=== PATIENT | female | born 1975 | race African-American/Black ===

== ENCOUNTER 2016-12-24 15:33 | Inpatient (IN) | payer OTHER ==
[2016-12-24 17:00] VITALS: BP 146/89
[2016-12-24] MEDS ORDERED: diphenhydrAMINE 50 MG/ML VIAL IVP PRN (17:00)
[2016-12-24 17:38] LABS: RED BLOOD COUNT 3.67 x10^6/uL (3.50-5.40); RED CELL DISTRIBUTION WIDTH 20.7 % (11.5-14.5); WHITE BLOOD COUNT 4.2 x10^3/uL (4.0-11.0)
[2016-12-24 17:42] LABS: HEMATOCRIT 19.6 % (36.0-47.0); HEMOGLOBIN 5.6 g/dL (12.0-15.5)
[2016-12-24] MEDS: IBUPROFEN 800 MG TABLET. PO PRN (18:06)
[2016-12-24] MEDS ORDERED: IBUPROFEN 800 MG TABLET. PO PRN (18:30)
[2016-12-24] MEDS ORDERED: ONDANSETRON PF 4 MG/2 ML VIAL. IV PRN (18:30)
[2016-12-24 19:05] VITALS: BP 162/81
[2016-12-24 19:44] VITALS: BP 145/72
[2016-12-24 21:55] VITALS: BP 136/69
[2016-12-24 22:15] VITALS: BP 138/75
--- NOTE | 2016-12-24 23:44 | PDOC1 ---
History and Physical Date of Admission Date of Admission DATE: 12/24/16 TIME: 23:36 Identification/Chief Complaint Chief Complaint severe anemia Problems: History of Present Illness History of Present Illness 41 y/o with severe chronic blood loss anemia with Hgb 5.1 that was called to clinic from lab drawn on previous day. Pt. reports fatigue. No H/A, CP, SOB, abd pain or syncope events. Pt. with known chronic blood loss anemia and fibroid uterus. Past Medical History Heme/Onc: Iron deficiency Anemia Current Medications Current Medications Current Medications Ibuprofen (Motrin) 800 mg PRN Q8HRS PRN PO INFLAMMATION Last administered on t 18:06; Start 12/24/16 at 17:00 Diphenhydramine HCl (Benadryl) 25 mg PRN Q6HRS PRN IVP ITCHING; Start 12/24/16 at 17:00 Ondansetron HCl (Zofran) 8 mg PRN Q6HRS PRN IV NAUSEA/VOMITING; Start 12/24/16 at 18:30 Pantoprazole Sodium (Protonix) 40 mg DAILYAC PO ; Start 12/25/16 at 07:30 Ibuprofen (Motrin) 800 mg PRN TID PRN PO INFLAMMATION; Start 12/24/16 at 18:30 Allergies Allergies: Coded Allergies: No Known Drug Allergies (Unverified , 12/24/16) ROS General: YES: Fatigue, No: Chills, Night Sweats, Malaise, Appetite, Other PSYCHOLOGICAL ROS: No: Anxiety, Behavioral Disorder, Concentration difficultie , Decreased libido, Depression, Disorientation, Hallucinations, Hostility, Irritablity, Memory difficulties, Mood Swings, Obsessive thoughts, Physical abuse, Sexual abuse, Sleep disturbances, Suicidal ideation, Other Eyes: No Blurry vision, No Decreased vision, No Double vision, No Dry eyes, No Excessive tearing, No Eye Pain, No Itchy Eyes, No Loss of vision, No Photophobia , No Scotomata, No Uses contacts, No Uses glasses, No Other HEENT: No: Heacaches, Visual Changes, Hearing change, Nasal congestion, Nasal discharge, Oral lesions, Sinus pain, Sore Throat, Epistaxis, Sneezing, Snoring, Tinnitus, Vertigo, Vocal changes, Other ALLERGY AND IMMUNOLOGY: No: Hives, Insect Bite Sensitivity, Itchy/Watery Eyes, Nasal Congestion, Post Nasal Drip, Seasonal Allergies, Other Hematological and Lymphatic: No: Bleeding Problems, Blood Clots, Blood Transfusions, Brusing, Night Sweats, Pallor, Swollen Lymph Nodes, Other ENDOCRINE: No: Breast Changes, Galactorrhea, Hair Pattern Changes, Hot Flashes , Malaise/lethargy, Mood Swings, Palpitations, Polydipsia/polyuria, Skin Changes , Temperature Intolerance, Unexpected Weight Changes, Other Breast: No New/Changing Breast Lumps, No Nipple changes, No Nipple discharge, No Other Respiratory: No: Cough, Hemoptysis, Orthopnea, Pleuritic Pain, Shortness of breath, SOB with excertion, Sputum Changes, Stridor, Tachypnea, Wheezing, Other Cardiovascular: No Chest Pain, No Palpitations, No Orthopnea, No Paroxysmal Noc. Dyspnea, No Edema, No Lt Headedness, No Other Gastrointestinal: No Nausea, No Vomiting, No Abdominal Pain, No Diarrhea, No Constipation, No Melena, No Hematochezia, No Other Genitourinary: No Dysuria, No Frequency, No Incontinence, No Hematuria, No Retention, No Discharge, No Urgency, No Pain, No Flank Pain, No Other, No , No , No , No , No , No , No Musculoskeletal: No Gait Disturbance, No Joint Pain, No Joint Stiffness, No Joint Swelling, No Muscle Pain, No Muscular Weakness, No Pain In:, No Swelling In:, No Other Physical Exam General: Alert, Oriented X3, Cooperative HEENT: Atraumatic Lungs: Clear to auscultation Heart: S1S2 Breasts: Normal Abdomen: Normal bowel sounds, Soft, Other (24 wk size uterus) Extremities: No clubbing, No edema Neuro: Normal gait Psych/Mental Status: Mental status NL Vitals Vitals Vital Signs Date Time Temp Pulse Resp B/P (MAP) Pulse Ox O2 Delivery O2 Flow Rate FiO2 12/24/16 22:15 98.1 75 14 138/75 98.1 12/24/16 19:44 Room Air Labs Labs Laboratory Tests Test 12/24/16 17:30 White Blood Count 4.2 x10^3/uL (4.0-11.0) Red Blood Count 3.67 x10^6/uL (3.50-5.40) Hemoglobin 5.6 g/dL (12.0-15.5) Hematocrit 19.6 % (36.0-47.0) Mean Corpuscular Volume 54 fL (79-100) Mean Corpuscular Hemoglobin 15 pg (25-35) Mean Corpuscular Hemoglobin Concent 29 g/dL (31-37) Red Cell Distribution Width 20.7 % (11.5-14.5) Platelet Count 498 x10^3/uL (140-400) Laboratory Tests Test 12/24/16 17:30 White Blood Count 4.2 x10^3/uL (4.0-11.0) Red Blood Count 3.67 x10^6/uL (3.50-5.40) Hemoglobin 5.6 g/dL (12.0-15.5) Hematocrit 19.6 % (36.0-47.0) Mean Corpuscular Volume 54 fL (79-100) Mean Corpuscular Hemoglobin 15 pg (25-35) Mean Corpuscular Hemoglobin Concent 29 g/dL (31-37) Red Cell Distribution Width 20.7 % (11.5-14.5) Platelet Count 498 x10^3/uL (140-400) VTE Prophylaxis Ordered VTE Prophylaxis Devices: No VTE Pharmacological Prophylaxi: No Assessment/Plan Assessment/Plan A: Severe Chronic Blood loss anemia P: Admit for blood transfusion 3 Units PRBC's. Check H&H 4 hours after last bag transfused. Pelvic sono. ENOCH ALBERT Jr, MD Dec 24, 2016 23:44
[2016-12-25 00:35] VITALS: BP 163/87
--- NOTE | 2016-12-25 00:50 | ACF ---
Admission Forms Criteria ANEMIA, IRON DEFICIENCY OR UNSPECIFIED Clinical Indications for Inpatient Care (Place 'X' for any and all applicable criteria): Admission is indicated for ANY ONE of the following(1)(2)(3)(4)(5)(6)(7): [X] I. Inpatient admission required rather than observation care (Also use Anemia, Iron Deficiency or Unspecified: Observation Care guideline as appropriate) because of ANY ONE of the following: [] a) Hemodynamic instability that is severe or persistent [] b) Active bleeding that cannot be rapidly controlled [] c) CVS symptoms (i.e., dyspnea, chest pain, heart failure) that are severe or persistent [] d) Neurologic symptoms (i.e., cognitive impairment, recurrent syncope or near syncope) that are severe or persistent [] e) Cardiac arrhythmias of immediate concern [] f) Acute peripheral ischemia (e.g., pulseless, cool, mottled, or cyanotic extremity) [] g) High-risk low platelet count [] h) Acute renal failure [X] i) Ongoing transfusion for blood loss (greater than 2 units) [] j) IV fluid to replace significant ongoing (eg, >24 hours) losses (> 3 L/m2 per day) [] k) Pulmonary artery catheter monitoring [] l) Supplemental oxygen or respiratory treatments for over 24 hours that are performable only in acute inpatient setting [] m) Immediate inpatient surgery [] n) Other condition, treatment or monitoring requiring inpatient admission [] II Active massive hemorrhage [] III. Active hemolysis with rapidly progressive anemia [A](6) Extended stay beyond goal length of stay may be needed for (17)(18) []a) Diagnosed cause of anemia requiring longer hospitalization (eg, active GI bleeding, immune hemolysis requiring electrophoresis, complications of malignancy requiring acute care []b) Continued emergent anemia indicators (23) []c) Transfusion reactions []d) Associated leukopenia or thrombocytopenia needing inpatient care []e) Active comorbidities (eg, renal failure, heart failure) The original [facility] Care Guidelines content created by [facility] Care Guidelines has been revised. The portions of the content which have been revised are identified through the use of italic text or in bold. [facility] Guidelines has neither reviewed nor approved the modified material. All other unmodified content is copyright [facility] Care Guidelines. Please see references footnoted in the original [facility] edition 2016 Admission Criteria Met?: Yes TOÑITO MERCADO Dec 25, 2016 00:50
[2016-12-25 01:01] VITALS: BP 136/78
[2016-12-25 01:12] VITALS: BP 116/65
[2016-12-25 03:14] VITALS: BP 124/77
[2016-12-25 04:12] VITALS: BP 90/60
[2016-12-25] MEDS ORDERED: PANTOPRAZOLE 40 MG TABLET.DR. PO SCH (07:30)
[2016-12-25] MEDS: IBUPROFEN 800 MG TABLET. PO PRN (08:44)
--- NOTE | 2016-12-25 08:46 | RAD ---
Pelvic ultrasound, 12/24/2016: History: Pelvic pain, menorrhagia, fibroid uterus Transabdominal and transvaginal scans were obtained. The uterus is enlarged and lobulated in contour due to the presence of of multiple uterine masses. It measures approximately 28 x 12 x 10 cm. The largest mass is heterogeneous and solid in nature and lies centrally. It measures 11.9 cm. There are 2 additional discrete masses on the left measuring 8.6 cm and 6.3 cm. There is a partially calcified uterine mass just to the right of midline measuring 3.9 cm. The findings are compatible with multiple uterine fibroids. The central uterine echo complex is distorted by these masses and not clearly visualized. The right ovary was not identified. A small structure which is probably the left ovary is visualized and it is of normal size. A small amount of free fluid was noted in the right adnexa. IMPRESSION: Enlarged uterus containing multiple solid masses as described above, most compatible with uterine fibroids.
[2016-12-25 09:46] LABS: HEMATOCRIT 31.3 % (36.0-47.0); HEMOGLOBIN 9.8 g/dL (12.0-15.5)
[2016-12-25 11:00] VITALS: BP 145/61
--- NOTE | 2016-12-25 11:38 | PDOC ---
SURGICAL PROGRESS NOTE Subjective PT. feeling much better after blood transfusion completed. No CP, SOB, H/A or dizziness. Pelvic sono results provided. Vital Signs Vital Signs Date Time Temp Pulse Resp B/P (MAP) Pulse Ox O2 Delivery O2 Flow Rate FiO2 12/25/16 11:00 98.6 74 20 145/61 (89) 100 Room Air 98.6 I&O Intake and Output 12/25/16 07:00 Intake Total 3168 ml Balance 3168 ml Intake Oral 2120 ml Blood Product IV Normal Saline Flush 1048 ml # Voids 2 PATIENT HAS A MURPHY: No General: Alert, Oriented X3, Cooperative HEENT: Atraumatic Lungs: Clear to auscultation Heart: Regular rate Abdomen: Normal bowel sounds, Soft Psych/Mental Status: Mental status NL Labs Laboratory Tests Test 12/24/16 17:30 12/25/16 09:13 White Blood Count 4.2 x10^3/uL (4.0-11.0) Red Blood Count 3.67 x10^6/uL (3.50-5.40) Hemoglobin 5.6 g/dL (12.0-15.5) 9.8 g/dL (12.0-15.5) Hematocrit 19.6 % (36.0-47.0) 31.3 % (36.0-47.0) Mean Corpuscular Volume 54 fL (79-100) Mean Corpuscular Hemoglobin 15 pg (25-35) Mean Corpuscular Hemoglobin Concent 29 g/dL (31-37) Red Cell Distribution Width 20.7 % (11.5-14.5) Platelet Count 498 x10^3/uL (140-400) Laboratory Tests Test 12/24/16 17:30 12/25/16 09:13 White Blood Count 4.2 x10^3/uL (4.0-11.0) Red Blood Count 3.67 x10^6/uL (3.50-5.40) Hemoglobin 5.6 g/dL (12.0-15.5) 9.8 g/dL (12.0-15.5) Hematocrit 19.6 % (36.0-47.0) 31.3 % (36.0-47.0) Mean Corpuscular Volume 54 fL (79-100) Mean Corpuscular Hemoglobin 15 pg (25-35) Mean Corpuscular Hemoglobin Concent 29 g/dL (31-37) Red Cell Distribution Width 20.7 % (11.5-14.5) Platelet Count 498 x10^3/uL (140-400) Assessment/Plan A: Chronic blood loss anemia s/p 3 Units PRBC's. P: D/c home. F/u in 1 week. Problems: ENOCH ALBERT Jr, MD Dec 25, 2016 11:38
--- NOTE | 2016-12-25 11:41 | DISCH ---
DISCHARGE INSTRUCTIONS Condition on Discharge Condition on Discharge: Stable Activity After Discharge Activity Instructions for Disc: Activity as tolerated Lifting Instructions after Dis: No heavy lifting Driving Instructions after Dis: Do not drive today Diet after Discharge Diet after Discharge: Regular Contacting the DRKrystin after DC Call your doctor for: Concerns you may have Follow-Up Follow up with: Dr. Sarkar in 1 week. ENOCH SARKAR Jr, MD Dec 25, 2016 11:41
[2016-12-25] MEDS ORDERED: MEDR10TA PO (11:42)
== END 2016-12-25 16:50 | disposition home or self-care (01) | DRG 812 ==
LOC: 3 NORTH 16:28
PROVIDERS: ADMIT Obstetrics & Gynecology; ATTEND Obstetrics & Gynecology
PROC: 30233N1 Transfusion of Nonautologous Red Blood Cells into Peripheral Vein, Percutaneous Approach (ICD-10-PCS; principal; 2016-12-24)
DX: D50.0 Iron deficiency anemia secondary to blood loss (chronic) (principal); D25.9 Leiomyoma of uterus, unspecified
CPT/HCPCS: 36415; 76830; 76856; 85014; 85018; 85027; 86850; 86900; 86901; 86920; P9016

== ENCOUNTER → 2017-01-16 | Outpatient (CLI) | payer OTHER ==
[2016-12-25 11:00] VITALS: BP 145/61
[~2017-01-16] MED LIST: MEDR10TA PO
[2017-01-16 10:40] LABS: BASO # 0.1 x10^3/uL (0.0-0.2); BASO % 1 % (0-3); EOS % 1 % (0-3); HEMATOCRIT 26.1 % (36.0-47.0); HEMOGLOBIN 7.9 g/dL (12.0-15.5); LYMPH # 1.9 x10^3/uL (1.0-4.8); LYMPH % 25 % (24-48); MEAN CORPUSCULAR HEMOGLOBIN 19 pg (25-35); MEAN CORPUSCULAR HGB CONC 30 g/dL (31-37); MEAN CORPUSCULAR VOLUME 63 fL (79-100); MONO % 6 % (0-9); NEUT % 66 % (31-73); PLATELET COUNT 620 x10^3/uL (140-400); RED BLOOD COUNT 4.15 x10^6/uL (3.50-5.40); RED CELL DISTRIBUTION WIDTH 32.7 % (11.5-14.5); WHITE BLOOD COUNT 7.4 x10^3/uL (4.0-11.0)
[2017-01-16 12:50] LABS: ANISOCYTOSIS MARKED; HYPOCHROMIA MARKED; MICROCYTOSIS MARKED; OVALOCYTES FEW; PLT ESTIMATE INCREASED (ADEQUATE); POLYCHROMASIA SLIGHT; TEAR DROP CELLS OCC
[2017-01-16 12:51] LABS: SCHISTOCYTES FEW
== END | disposition home or self-care (01) ==
LOC: LAB 10:19
PROVIDERS: ATTEND Obstetrics & Gynecology
DX: Z01.818 Encounter for other preprocedural examination (principal)
CPT/HCPCS: 36415; 85025

== ENCOUNTER → 2017-02-05 | Outpatient (CLI) | payer OTHER ==
[2017-01-25 12:50] VITALS: BP 131/74
[~2017-02-05] MED LIST changes: +CONTRAST GIVEN MC PRN; +FERR-26 PO; +IOHEXOL 240 MG/ML 50ML VIAL. ONE; +IOHEXOL 240 MG/ML 50ML VIAL. PO ONE; +IOHEXOL 300 MG/ML 75 ML VIAL IV ONE; +IOHEXOL 300 MG/ML 75 ML VIAL ONE; +NAPR500T3 PO; +OXYC-323 PO
--- NOTE | 2017-02-05 10:53 | RAD ---
Indication uterine malignancy. Staging. The chest, abdomen and pelvis were scanned. Both IV and gastrointestinal contrast were administered. 75 cc of Omnipaque 300 was administered intravenously. No prior CT imaging is available. CT chest: Findings. The thoracic aorta appears unremarkable. There is no significant hilar or mediastinal adenopathy. No acute parenchymal infiltrate is seen. There is no dominant soft tissue mass in either lung. There is no evidence of metastatic disease. CT abdomen and pelvis: Findings. The liver and spleen appear unremarkable. The gallbladder appears grossly normal. No pancreatic abnormality is seen. There are no adrenal masses and the kidneys appear unremarkable. There is no significant central or retroperitoneal adenopathy. There is no evidence of metastatic disease to the abdomen. In the pelvis there is a low-density mass, likely reflecting an ovarian cyst, in the left adnexa measuring approximately 3.7 cm in greatest dimension. An acute finding or definite evidence of metastatic disease in the pelvis is not seen. Significant pelvic or inguinal adenopathy is not seen. IMPRESSION: No acute finding seen in the chest, abdomen or pelvis. No definite evidence of metastatic disease. Low-density 3.7 cm mass in the left adnexa likely reflecting an ovarian cyst. This could be further evaluated with ultrasound if clinically warranted PQRS Compliance Statement: One or more of the following individualized dose reduction techniques were utilized for this examination: 1. Automated exposure control 2. Adjustment of the mA and/or kV according to patient size 3. Use of iterative reconstruction technique
== END | disposition home or self-care (01) ==
LOC: CT 08:51
PROVIDERS: ATTEND Obstetrics & Gynecology Gynecologic Oncology
DX: C55 Malignant neoplasm of uterus, part unspecified (principal)
CPT/HCPCS: 71260; 74177; Q9966; Q9967

== ENCOUNTER → 2017-02-18 | Outpatient (CLI) | payer OTHER ==
[2017-01-25 12:50] VITALS: BP 131/74
[~2017-02-18] MED LIST changes: -CONTRAST GIVEN MC PRN; -IOHEXOL 240 MG/ML 50ML VIAL. ONE; -IOHEXOL 240 MG/ML 50ML VIAL. PO ONE; -IOHEXOL 300 MG/ML 75 ML VIAL IV ONE; -IOHEXOL 300 MG/ML 75 ML VIAL ONE
--- NOTE | 2017-02-18 12:19 | EKG ---
[facility] [address] [place] [address] Test Date: 2017-02-18 Test Time: 12:17:17 Pat Name: BYRON TALBOT Department: Room: Gender: F Supervisor [employer] System: NATASHA : 1975 Requested By: CLARE JONES Order Number: [id number] Reading MD: Erendira Avery Measurements Intervals [place] Rate: 74 P: 47 VA: 212 QRS: -2 QRSD: 72 T: 51 QT: 370 QTc: 416 Interpretive Statements SINUS RHYTHM LEFTWARD AXIS OTHERWISE NORMAL ECG Electronically Signed On 02-19-2017 9:41:10 CDT by Erendira Avery
[2017-02-18 13:07] LABS: BASO # 0.1 x10^3/uL (0.0-0.2); BASO % 1 % (0-3); EOS % 4 % (0-3); HEMATOCRIT 31.4 % (36.0-47.0); HEMOGLOBIN 9.8 g/dL (12.0-15.5); LYMPH # 1.7 x10^3/uL (1.0-4.8); LYMPH % 35 % (24-48); MEAN CORPUSCULAR HEMOGLOBIN 22 pg (25-35); MEAN CORPUSCULAR HGB CONC 31 g/dL (31-37); MEAN CORPUSCULAR VOLUME 70 fL (79-100); MONO % 9 % (0-9); NEUT % 51 % (31-73); PLATELET COUNT 463 x10^3/uL (140-400); RED BLOOD COUNT 4.48 x10^6/uL (3.50-5.40); RED CELL DISTRIBUTION WIDTH 28.6 % (11.5-14.5); WHITE BLOOD COUNT 4.9 x10^3/uL (4.0-11.0)
[2017-02-18 13:34] LABS: ALBUMIN 3.8 g/dL (3.4-5.0); CALCIUM 8.6 mg/dL (8.5-10.1); CREATININE 0.8 mg/dL (0.6-1.0); GFR 95.2; POTASSIUM 3.5 mmol/L (3.5-5.1); TOTAL BILIRUBIN 0.8 mg/dL (0.2-1.0); TOTAL PROTEIN 7.5 g/dL (6.4-8.2)
[2017-02-18 14:49] LABS: HYPOCHROMIA MOD; MICROCYTOSIS MOD; OVALOCYTES FEW; PLT ESTIMATE INCREASED (ADEQUATE); POIKILOCYTOSIS SLIGHT
[2017-02-18 14:50] LABS: ANISOCYTOSIS MOD
== END | disposition home or self-care (01) ==
LOC: LAB 11:43
PROVIDERS: ATTEND Obstetrics & Gynecology Gynecologic Oncology
DX: C49.9 Malignant neoplasm of connective and soft tissue, unspecified (principal)
CPT/HCPCS: 36415; 80053; 85025; 86304; 93005

== ENCOUNTER 2017-03-13 08:47 | Outpatient (CLI) | payer OTHER ==
[~2017-03-13 08:47] MED LIST changes: -FERR-26 PO; +HEPARIN PF 500 UNIT/5 ML DISP.SYRIN. IV; +LIDOCAINE 1%/EPI 1:100,000 20 ML VIAL.; -MEDR10TA PO; -NAPR500T3 PO; -OXYC-323 PO; +VANCOMYCIN 1GM IVPB FOR OMNI 250 ML
[2017-03-13 09:01] LABS: ADD MAN DIFF? NO
[2017-03-13 09:14] LABS: BASO # 0.1 x10^3/uL (0.0-0.2); BASO % 2 % (0-3); EOS % 4 % (0-3); HEMATOCRIT 32.4 % (36.0-47.0); HEMOGLOBIN 10.2 g/dL (12.0-15.5); LYMPH # 1.3 x10^3/uL (1.0-4.8); LYMPH % 26 % (24-48); MEAN CORPUSCULAR HEMOGLOBIN 22 pg (25-35); MEAN CORPUSCULAR HGB CONC 32 g/dL (31-37); MEAN CORPUSCULAR VOLUME 69 fL (79-100); MONO % 6 % (0-9); NEUT % 63 % (31-73); PLATELET COUNT 632 x10^3/uL (140-400); RED BLOOD COUNT 4.74 x10^6/uL (3.50-5.40); RED CELL DISTRIBUTION WIDTH 24.4 % (11.5-14.5); WHITE BLOOD COUNT 4.9 x10^3/uL (4.0-11.0)
[2017-03-13 09:26] LABS: PROTHROMBIN TIME PATIENT 12.5 SEC (11.7-14.0)
[2017-03-13] MEDS ORDERED: MIDAZOLAM HCL/PF 5 MG/5 ML VIAL. (09:51)
[2017-03-13] MEDS ORDERED: fentaNYL PF VIAL 100 MCG/2 ML VIAL (09:51)
[2017-03-13] MEDS: HEPARIN PF 500 UNIT/5 ML DISP.SYRIN. IV (10:00)
[2017-03-13] MEDS: LIDOCAINE 1% / SOD BICARB 8.4% 20 ML VIAL. IJ (10:00)
[2017-03-13] MEDS: LIDOCAINE 1%/EPI 1:100,000 20 ML VIAL. INJ (10:46)
[2017-03-13] MEDS: MIDAZOLAM HCL/PF 5 MG/5 ML VIAL. IV (10:47)
[2017-03-13] MEDS: fentaNYL PF VIAL 100 MCG/2 ML VIAL IV (10:48)
[2017-03-13 11:53] LABS: PLT ESTIMATE INCREASED (ADEQUATE)
[2017-03-13 11:54] LABS: ANISOCYTOSIS MOD; HYPOCHROMIA MOD; MICROCYTOSIS MARKED
== END 2017-03-13 12:40 | disposition home or self-care (01) ==
LOC: INTRAD 08:47
DX: C49.9 Malignant neoplasm of connective and soft tissue, unspecified (principal); D64.9 Anemia, unspecified; Z79.01 Long term (current) use of anticoagulants; Z98.890 Other specified postprocedural states; Z90.710 Acquired absence of both cervix and uterus; Z72.89 Other problems related to lifestyle
CPT/HCPCS: 36415; 36561; 76937; 77001; 85025; 85610; 99152; 99153; C1751; C1892; J0690; J2250; J3010; J3490

== ENCOUNTER → 2017-04-13 | Outpatient (CLI) | payer OTHER ==
[2017-03-13 12:00] VITALS: BP 131/79
[~2017-04-13] MED LIST changes: +FERR-26 PO; -HEPARIN PF 500 UNIT/5 ML DISP.SYRIN. IV; +HEPARIN PF 500 UNIT/5 ML DISP.SYRIN. IV ONE; -LIDOCAINE 1%/EPI 1:100,000 20 ML VIAL.; +MEDR10TA PO; +MULT1TAB52 PO; +NAPR500T4 PO; +OXYC-323 PO; -VANCOMYCIN 1GM IVPB FOR OMNI 250 ML
[2017-04-13 14:24] LABS: BASO # 0.1 x10^3/uL (0.0-0.2); BASO % 1 % (0-3); EOS % 1 % (0-3); HEMATOCRIT 32.5 % (36.0-47.0); HEMOGLOBIN 10.1 g/dL (12.0-15.5); LYMPH # 2.8 x10^3/uL (1.0-4.8); LYMPH % 22 % (24-48); MEAN CORPUSCULAR HEMOGLOBIN 21 pg (25-35); MEAN CORPUSCULAR HGB CONC 31 g/dL (31-37); MEAN CORPUSCULAR VOLUME 68 fL (79-100); MONO % 8 % (0-9); NEUT % 69 % (31-73); PLATELET COUNT 131 x10^3/uL (140-400); RED BLOOD COUNT 4.77 x10^6/uL (3.50-5.40); RED CELL DISTRIBUTION WIDTH 22.2 % (11.5-14.5); WHITE BLOOD COUNT 12.6 x10^3/uL (4.0-11.0)
[2017-04-14 13:16] LABS: % EOS 1 % (0-5); NUCLEATED RBC 1; PLT ESTIMATE DECREASED (ADEQUATE); TOXIC GRANULATION PRESENT
[2017-04-14 13:17] LABS: ANISOCYTOSIS MOD; HYPOCHROMIA MOD; MICROCYTOSIS MOD; OVALOCYTES FEW; POIKILOCYTOSIS MOD; POLYCHROMASIA SLIGHT; SCHISTOCYTES FEW
[2017-04-14 13:19] LABS: % BLASTS 2 % (0-0)
== END | disposition home or self-care (01) ==
LOC: LAB 13:38 → OPS 13:51
DX: C55 Malignant neoplasm of uterus, part unspecified (principal)
CPT/HCPCS: 36415; 36591; 85007; 85025

== ENCOUNTER → 2017-04-17 | Outpatient (CLI) | payer OTHER ==
[2017-03-13 12:00] VITALS: BP 131/79
[~2017-04-17] MED LIST changes: -HEPARIN PF 500 UNIT/5 ML DISP.SYRIN. IV ONE
[2017-04-17 12:53] LABS: BASO # 0.1 x10^3/uL (0.0-0.2); BASO % 1 % (0-3); EOS % 0 % (0-3); HEMATOCRIT 31.3 % (36.0-47.0); HEMOGLOBIN 9.7 g/dL (12.0-15.5); LYMPH % 20 % (24-48); MEAN CORPUSCULAR HEMOGLOBIN 21 pg (25-35); MEAN CORPUSCULAR HGB CONC 31 g/dL (31-37); MEAN CORPUSCULAR VOLUME 69 fL (79-100); MONO % 6 % (0-9); NEUT % 73 % (31-73); PLATELET COUNT 235 x10^3/uL (140-400); RED BLOOD COUNT 4.55 x10^6/uL (3.50-5.40); RED CELL DISTRIBUTION WIDTH 22.6 % (11.5-14.5); WHITE BLOOD COUNT 14.9 x10^3/uL (4.0-11.0)
[2017-04-17 13:03] LABS: ALBUMIN/GLOBULIN RATIO 1.1 (1.0-1.7); CALCIUM 9.3 mg/dL (8.5-10.1); CREATININE 0.8 mg/dL (0.6-1.0); GFR 95.2; POTASSIUM 3.9 mmol/L (3.5-5.1); TOTAL BILIRUBIN 0.4 mg/dL (0.2-1.0); TOTAL PROTEIN 7.7 g/dL (6.4-8.2)
== END | disposition home or self-care (01) ==
LOC: LAB 12:28
PROVIDERS: ATTEND Nurse Practitioner Family
DX: C49.9 Malignant neoplasm of connective and soft tissue, unspecified (principal)
CPT/HCPCS: 36415; 80053; 85025

== ENCOUNTER → 2017-05-04 | Outpatient (CLI) | payer OTHER ==
[2017-03-13 12:00] VITALS: BP 131/79
[2017-05-04 11:22] LABS: BASO # 0.1 x10^3/uL (0.0-0.2); BASO % 0 % (0-3); EOS % 1 % (0-3); HEMATOCRIT 32.9 % (36.0-47.0); HEMOGLOBIN 10.1 g/dL (12.0-15.5); LYMPH # 3.7 x10^3/uL (1.0-4.8); LYMPH % 17 % (24-48); MEAN CORPUSCULAR HEMOGLOBIN 21 pg (25-35); MEAN CORPUSCULAR HGB CONC 31 g/dL (31-37); MEAN CORPUSCULAR VOLUME 70 fL (79-100); MONO % 6 % (0-9); NEUT % 76 % (31-73); PLATELET COUNT 184 x10^3/uL (140-400); RED BLOOD COUNT 4.71 x10^6/uL (3.50-5.40); WHITE BLOOD COUNT 21.5 x10^3/uL (4.0-11.0)
[2017-05-04 13:05] LABS: % EOS 1 % (0-5); NUCLEATED RBC 1; PLT ESTIMATE ADEQUATE (ADEQUATE)
== END | disposition home or self-care (01) ==
LOC: LAB 10:59
DX: C55 Malignant neoplasm of uterus, part unspecified (principal)
CPT/HCPCS: 36415; 85007; 85025

== ENCOUNTER → 2017-05-08 | Outpatient (CLI) | payer OTHER ==
[2017-03-13 12:00] VITALS: BP 131/79
[2017-05-08 16:39] LABS: BASO % 0 % (0-3); EOS % 0 % (0-3); HEMATOCRIT 31.6 % (36.0-47.0); HEMOGLOBIN 9.6 g/dL (12.0-15.5); LYMPH # 2.7 x10^3/uL (1.0-4.8); LYMPH % 8 % (24-48); MEAN CORPUSCULAR HEMOGLOBIN 22 pg (25-35); MEAN CORPUSCULAR HGB CONC 30 g/dL (31-37); MEAN CORPUSCULAR VOLUME 72 fL (79-100); MONO % 4 % (0-9); NEUT % 89 % (31-73); PLATELET COUNT 207 x10^3/uL (140-400); RED BLOOD COUNT 4.41 x10^6/uL (3.50-5.40); RED CELL DISTRIBUTION WIDTH 26.3 % (11.5-14.5); WHITE BLOOD COUNT 35.1 x10^3/uL (4.0-11.0)
[2017-05-08 16:54] LABS: ALBUMIN 3.8 g/dL (3.4-5.0); ALBUMIN/GLOBULIN RATIO 1.1 (1.0-1.7); CALCIUM 8.9 mg/dL (8.5-10.1); CREATININE 0.8 mg/dL (0.6-1.0); GFR 95.2; POTASSIUM 3.7 mmol/L (3.5-5.1); TOTAL BILIRUBIN 0.3 mg/dL (0.2-1.0); TOTAL PROTEIN 7.2 g/dL (6.4-8.2)
[2017-05-08 17:27] LABS: % EOS 1 % (0-5); ANISOCYTOSIS MARKED; HYPOCHROMIA MOD; MICROCYTOSIS MOD; NUCLEATED RBC 1; OVALOCYTES MANY; PLT ESTIMATE ADEQUATE (ADEQUATE); POLYCHROMASIA SLIGHT; SCHISTOCYTES FEW
== END | disposition home or self-care (01) ==
LOC: LAB 16:05
DX: C49.9 Malignant neoplasm of connective and soft tissue, unspecified (principal)
CPT/HCPCS: 36415; 80053; 85007; 85025

== ENCOUNTER → 2017-05-15 | Outpatient (CLI) | payer OTHER ==
[2017-03-13 12:00] VITALS: BP 131/79
[2017-05-15 12:10] LABS: BASO % 1 % (0-3); EOS % 0 % (0-3); HEMATOCRIT 33.7 % (36.0-47.0); HEMOGLOBIN 10.5 g/dL (12.0-15.5); LYMPH # 1.2 x10^3/uL (1.0-4.8); LYMPH % 28 % (24-48); MEAN CORPUSCULAR HEMOGLOBIN 22 pg (25-35); MEAN CORPUSCULAR HGB CONC 31 g/dL (31-37); MEAN CORPUSCULAR VOLUME 70 fL (79-100); MONO % 1 % (0-9); NEUT % 69 % (31-73); PLATELET COUNT 540 x10^3/uL (140-400); RED BLOOD COUNT 4.82 x10^6/uL (3.50-5.40); RED CELL DISTRIBUTION WIDTH 27.4 % (11.5-14.5); WHITE BLOOD COUNT 4.4 x10^3/uL (4.0-11.0)
== END | disposition home or self-care (01) ==
LOC: LAB 11:57
PROVIDERS: ATTEND Nurse Practitioner Family
DX: C49.9 Malignant neoplasm of connective and soft tissue, unspecified (principal)
CPT/HCPCS: 36415; 85025

== ENCOUNTER → 2017-05-22 | Outpatient (CLI) | payer OTHER ==
[2017-03-13 12:00] VITALS: BP 131/79
[2017-05-22 11:58] LABS: BASO # 0.1 x10^3/uL (0.0-0.2); BASO % 1 % (0-3); EOS % 2 % (0-3); HEMATOCRIT 29.7 % (36.0-47.0); HEMOGLOBIN 9.3 g/dL (12.0-15.5); LYMPH # 1.7 x10^3/uL (1.0-4.8); LYMPH % 14 % (24-48); MEAN CORPUSCULAR HEMOGLOBIN 22 pg (25-35); MEAN CORPUSCULAR HGB CONC 31 g/dL (31-37); MEAN CORPUSCULAR VOLUME 71 fL (79-100); MONO % 1 % (0-9); NEUT % 83 % (31-73); PLATELET COUNT 220 x10^3/uL (140-400); RED BLOOD COUNT 4.19 x10^6/uL (3.50-5.40); RED CELL DISTRIBUTION WIDTH 27.5 % (11.5-14.5); WHITE BLOOD COUNT 11.9 x10^3/uL (4.0-11.0)
[2017-05-22 12:48] LABS: % EOS 1 % (0-5); ANISOCYTOSIS MOD; OVALOCYTES FEW; PLT ESTIMATE ADEQUATE (ADEQUATE)
[2017-05-22 12:49] LABS: POIKILOCYTOSIS SLIGHT
== END | disposition home or self-care (01) ==
LOC: LAB 11:35
PROVIDERS: ATTEND Nurse Practitioner Family
DX: C49.9 Malignant neoplasm of connective and soft tissue, unspecified (principal)
CPT/HCPCS: 36415; 85007; 85025

== ENCOUNTER → 2017-05-29 | Outpatient (CLI) | payer OTHER ==
[2017-05-29 14:17] LABS: BASO # 0.1 x10^3/uL (0.0-0.2); BASO % 0 % (0-3); EOS % 0 % (0-3); HEMATOCRIT 33.2 % (36.0-47.0); HEMOGLOBIN 10.2 g/dL (12.0-15.5); LYMPH # 2.1 x10^3/uL (1.0-4.8); LYMPH % 6 % (24-48); MEAN CORPUSCULAR HEMOGLOBIN 22 pg (25-35); MEAN CORPUSCULAR HGB CONC 31 g/dL (31-37); MEAN CORPUSCULAR VOLUME 72 fL (79-100); MONO % 3 % (0-9); NEUT % 91 % (31-73); PLATELET COUNT 236 x10^3/uL (140-400); RED BLOOD COUNT 4.62 x10^6/uL (3.50-5.40); RED CELL DISTRIBUTION WIDTH 29.2 % (11.5-14.5); WHITE BLOOD COUNT 34.4 x10^3/uL (4.0-11.0)
[2017-05-29 14:21] LABS: ADD MAN DIFF? YES
[2017-05-29 14:22] LABS: ALBUMIN 3.9 g/dL (3.4-5.0); ALBUMIN/GLOBULIN RATIO 1.1 (1.0-1.7); ALK PHOS 178 U/L (46-116); ALT (SGPT) 32 U/L (14-59); ANION GAP 11 (6-14); AST (SGOT) 24 U/L (15-37); BLOOD UREA NITROGEN 9 mg/dL (7-20); BUN/CREATININE RATIO 10 (6-20); CALCIUM 9.1 mg/dL (8.5-10.1); CARBON DIOXIDE 27 mmol/L (21-32); CHLORIDE 103 mmol/L (98-107); CREATININE 0.9 mg/dL (0.6-1.0); GFR 83.1; GLUCOSE 120 mg/dL (70-99); SODIUM 141 mmol/L (136-145); TOTAL BILIRUBIN 0.3 mg/dL (0.2-1.0); TOTAL PROTEIN 7.6 g/dL (6.4-8.2)
[2017-05-29 15:09] LABS: NUCLEATED RBC 2
[2017-05-29 15:10] LABS: PLT ESTIMATE ADEQUATE (ADEQUATE)
[2017-05-29 15:19] LABS: POLYCHROMASIA MOD
[2017-05-29 15:20] LABS: ANISOCYTOSIS MARKED; HYPOCHROMIA MOD; MICROCYTOSIS MOD; OVALOCYTES MOD; POIKILOCYTOSIS MARKED; TEAR DROP CELLS FEW
[2017-05-29 15:21] LABS: HELMET CELLS FEW; SCHISTOCYTES MOD; SPHEROCYTES FEW; TOXIC GRANULATION PRESENT
[2017-05-29 15:22] LABS: ACANTHOCYTES OCC
== END | disposition home or self-care (01) ==
LOC: LAB 13:33
DX: C49.9 Malignant neoplasm of connective and soft tissue, unspecified (principal)
CPT/HCPCS: 36415; 80053; 85007; 85025

== ENCOUNTER → 2017-06-05 | Outpatient (CLI) | payer OTHER ==
[2017-06-05 12:32] LABS: ADD MAN DIFF? NO
[2017-06-05 12:36] LABS: BASO % 1 % (0-3); EOS % 0 % (0-3); HEMATOCRIT 31.3 % (36.0-47.0); HEMOGLOBIN 9.9 g/dL (12.0-15.5); LYMPH % 34 % (24-48); MEAN CORPUSCULAR HEMOGLOBIN 23 pg (25-35); MEAN CORPUSCULAR HGB CONC 32 g/dL (31-37); MEAN CORPUSCULAR VOLUME 72 fL (79-100); MONO # 0.1 x10^3/uL (0.0-1.1); MONO % 2 % (0-9); NEUT # 1.9 x10^3uL (1.8-7.7); NEUT % 62 % (31-73); PLATELET COUNT 656 x10^3/uL (140-400); RED BLOOD COUNT 4.36 x10^6/uL (3.50-5.40); RED CELL DISTRIBUTION WIDTH 30.2 % (11.5-14.5)
== END | disposition home or self-care (01) ==
LOC: LAB 12:22
DX: C55 Malignant neoplasm of uterus, part unspecified (principal)
CPT/HCPCS: 36415; 85025

== ENCOUNTER → 2017-06-12 | Outpatient (CLI) | payer OTHER ==
[2017-06-12 16:32] LABS: BASO # 0.1 x10^3/uL (0.0-0.2); BASO % 1 % (0-3); EOS # 0.1 x10^3/uL (0.0-0.7); EOS % 1 % (0-3); HEMATOCRIT 27.5 % (36.0-47.0); HEMOGLOBIN 8.6 g/dL (12.0-15.5); LYMPH # 3.3 x10^3/uL (1.0-4.8); LYMPH % 16 % (24-48); MEAN CORPUSCULAR HEMOGLOBIN 23 pg (25-35); MEAN CORPUSCULAR HGB CONC 32 g/dL (31-37); MEAN CORPUSCULAR VOLUME 73 fL (79-100); MONO # 0.1 x10^3/uL (0.0-1.1); MONO % 1 % (0-9); NEUT # 17.7 x10^3uL (1.8-7.7); NEUT % 82 % (31-73); PLATELET COUNT 236 x10^3/uL (140-400); RED BLOOD COUNT 3.75 x10^6/uL (3.50-5.40); RED CELL DISTRIBUTION WIDTH 29.5 % (11.5-14.5); WHITE BLOOD COUNT 21.5 x10^3/uL (4.0-11.0)
[2017-06-12 16:33] LABS: ADD MAN DIFF? YES
[2017-06-12 17:20] LABS: % BASOS 1 % (0-3); % LYMPHS 16 % (24-48); % MONOS 2 % (0-10); % SEGS 81 % (35-66); HYPOCHROMIA SLIGHT; PLT ESTIMATE ADEQUATE (ADEQUATE); POIKILOCYTOSIS MOD
[2017-06-12 17:21] LABS: ANISOCYTOSIS MARKED; MICROCYTOSIS SLIGHT
[2017-06-12 17:22] LABS: OVALOCYTES MOD
== END | disposition home or self-care (01) ==
LOC: LAB 16:09
DX: C55 Malignant neoplasm of uterus, part unspecified (principal)
CPT/HCPCS: 36415; 85007; 85025

== ENCOUNTER → 2017-06-19 | Outpatient (CLI) | payer OTHER ==
[2017-06-19 12:16] LABS: BASO % 0 % (0-3); EOS # 0.1 x10^3/uL (0.0-0.7); EOS % 0 % (0-3); HEMATOCRIT 30.4 % (36.0-47.0); HEMOGLOBIN 9.4 g/dL (12.0-15.5); LYMPH # 2.1 x10^3/uL (1.0-4.8); LYMPH % 8 % (24-48); MEAN CORPUSCULAR HEMOGLOBIN 24 pg (25-35); MEAN CORPUSCULAR HGB CONC 31 g/dL (31-37); MEAN CORPUSCULAR VOLUME 76 fL (79-100); MONO # 1.3 x10^3/uL (0.0-1.1); MONO % 5 % (0-9); NEUT # 22.8 x10^3uL (1.8-7.7); NEUT % 87 % (31-73); PLATELET COUNT 194 x10^3/uL (140-400); RED CELL DISTRIBUTION WIDTH 31.6 % (11.5-14.5); WHITE BLOOD COUNT 26.3 x10^3/uL (4.0-11.0)
[2017-06-19 12:21] LABS: ADD MAN DIFF? YES
[2017-06-19 12:30] LABS: ALBUMIN 3.6 g/dL (3.4-5.0); ALBUMIN/GLOBULIN RATIO 1.1 (1.0-1.7); ALK PHOS 139 U/L (46-116); ALT (SGPT) 27 U/L (14-59); ANION GAP 9 (6-14); AST (SGOT) 20 U/L (15-37); BLOOD UREA NITROGEN 9 mg/dL (7-20); BUN/CREATININE RATIO 13 (6-20); CALCIUM 8.7 mg/dL (8.5-10.1); CARBON DIOXIDE 27 mmol/L (21-32); CHLORIDE 104 mmol/L (98-107); CREATININE 0.7 mg/dL (0.6-1.0); GLUCOSE 106 mg/dL (70-99); POTASSIUM 3.6 mmol/L (3.5-5.1); SODIUM 140 mmol/L (136-145); TOTAL BILIRUBIN 0.4 mg/dL (0.2-1.0)
[2017-06-19 13:23] LABS: % BANDS 7 % (0-9); % LYMPHS 7 % (24-48); % METAS 4 % (0-0); % MONOS 7 % (0-10); % MYELOS 1 % (0-0); % SEGS 74 % (35-66); NUCLEATED RBC 1
[2017-06-19 13:25] LABS: ANISOCYTOSIS MOD; PLT ESTIMATE ADEQUATE (ADEQUATE); POLYCHROMASIA PRESENT
[2017-06-19 13:26] LABS: OVALOCYTES FEW; POIKILOCYTOSIS MOD; TEAR DROP CELLS FEW; TOXIC GRANULATION SLIGHT; TOXIC VACUOLATION SLIGHT
[2017-06-19 13:27] LABS: BIZZARE CELLS FEW; MICROCYTOSIS PRESENT; TARGET CELLS OCC
[2017-06-20 01:10] LABS: CA 125 9.6 U/mL (0.0-38.1)
== END | disposition home or self-care (01) ==
LOC: LAB 11:47
DX: C55 Malignant neoplasm of uterus, part unspecified (principal)
CPT/HCPCS: 36415; 80053; 85007; 85025; 86304

== ENCOUNTER → 2017-06-26 | Outpatient (CLI) | payer OTHER ==
[2017-06-26 12:38] LABS: ADD MAN DIFF? NO
[2017-06-26 12:50] LABS: BASO % 0 % (0-3); EOS % 1 % (0-3); HEMATOCRIT 29.2 % (36.0-47.0); HEMOGLOBIN 9.7 g/dL (12.0-15.5); LYMPH # 1.3 x10^3/uL (1.0-4.8); LYMPH % 37 % (24-48); MEAN CORPUSCULAR HEMOGLOBIN 25 pg (25-35); MEAN CORPUSCULAR HGB CONC 33 g/dL (31-37); MEAN CORPUSCULAR VOLUME 75 fL (79-100); MONO % 1 % (0-9); NEUT % 61 % (31-73); PLATELET COUNT 684 x10^3/uL (140-400); RED CELL DISTRIBUTION WIDTH 31.6 % (11.5-14.5); WHITE BLOOD COUNT 3.4 x10^3/uL (4.0-11.0)
[2017-06-26 15:10] LABS: PLT ESTIMATE INCREASED (ADEQUATE)
[2017-06-26 15:11] LABS: ANISOCYTOSIS MARKED; HYPOCHROMIA MOD; MICROCYTOSIS SLIGHT; OVALOCYTES FEW; POIKILOCYTOSIS MOD; SCHISTOCYTES FEW; TEAR DROP CELLS FEW
== END | disposition home or self-care (01) ==
LOC: LAB 12:22
DX: C49.9 Malignant neoplasm of connective and soft tissue, unspecified (principal)
CPT/HCPCS: 36415; 85025

== ENCOUNTER → 2017-07-03 | Outpatient (CLI) | payer OTHER ==
[2017-07-03 14:34] LABS: BASO # 0.1 x10^3/uL (0.0-0.2); BASO % 1 % (0-3); EOS # 0.2 x10^3/uL (0.0-0.7); EOS % 1 % (0-3); HEMATOCRIT 26.9 % (36.0-47.0); HEMOGLOBIN 8.8 g/dL (12.0-15.5); LYMPH # 2.1 x10^3/uL (1.0-4.8); LYMPH % 13 % (24-48); MEAN CORPUSCULAR HEMOGLOBIN 25 pg (25-35); MEAN CORPUSCULAR HGB CONC 33 g/dL (31-37); MEAN CORPUSCULAR VOLUME 77 fL (79-100); MONO # 0.2 x10^3/uL (0.0-1.1); MONO % 1 % (0-9); NEUT # 13.2 x10^3uL (1.8-7.7); NEUT % 84 % (31-73); PLATELET COUNT 283 x10^3/uL (140-400); RED BLOOD COUNT 3.52 x10^6/uL (3.50-5.40); RED CELL DISTRIBUTION WIDTH 30.9 % (11.5-14.5); WHITE BLOOD COUNT 15.8 x10^3/uL (4.0-11.0)
[2017-07-03 14:42] LABS: ADD MAN DIFF? YES
[2017-07-03 15:02] LABS: % ATYL 2 % (0-0); % BANDS 7 % (0-9); % EOS 3 % (0-5); % LYMPHS 11 % (24-48); % MONOS 1 % (0-10); % SEGS 76 % (35-66); ANISOCYTOSIS MARKED; HYPOCHROMIA MOD; OVALOCYTES MOD; PLT ESTIMATE ADEQUATE (ADEQUATE)
[2017-07-03 15:03] LABS: BIZZARE CELLS FEW; TEAR DROP CELLS FEW
== END | disposition home or self-care (01) ==
LOC: LAB 14:05
DX: C49.9 Malignant neoplasm of connective and soft tissue, unspecified (principal)
CPT/HCPCS: 36415; 85007; 85025

== ENCOUNTER → 2017-07-10 | Outpatient (CLI) | payer OTHER ==
[2017-07-10 12:19] LABS: BASO # 0.1 x10^3/uL (0.0-0.2); BASO % 0 % (0-3); EOS % 0 % (0-3); HEMATOCRIT 29.3 % (36.0-47.0); HEMOGLOBIN 9.2 g/dL (12.0-15.5); LYMPH # 2.7 x10^3/uL (1.0-4.8); LYMPH % 7 % (24-48); MEAN CORPUSCULAR HEMOGLOBIN 25 pg (25-35); MEAN CORPUSCULAR HGB CONC 31 g/dL (31-37); MEAN CORPUSCULAR VOLUME 79 fL (79-100); MONO % 3 % (0-9); NEUT # 33.5 x10^3uL (1.8-7.7); NEUT % 90 % (31-73); PLATELET COUNT 185 x10^3/uL (140-400); RED BLOOD COUNT 3.72 x10^6/uL (3.50-5.40); RED CELL DISTRIBUTION WIDTH 31.1 % (11.5-14.5); WHITE BLOOD COUNT 37.4 x10^3/uL (4.0-11.0)
[2017-07-10 12:25] LABS: ADD MAN DIFF? YES
[2017-07-10 12:30] LABS: ALBUMIN 3.6 g/dL (3.4-5.0); ALK PHOS 136 U/L (46-116); ALT (SGPT) 25 U/L (14-59); ANION GAP 10 (6-14); AST (SGOT) 19 U/L (15-37); BLOOD UREA NITROGEN 9 mg/dL (7-20); BUN/CREATININE RATIO 11 (6-20); CALCIUM 9.3 mg/dL (8.5-10.1); CARBON DIOXIDE 28 mmol/L (21-32); CHLORIDE 102 mmol/L (98-107); CREATININE 0.8 mg/dL (0.6-1.0); GFR 95.2; GLUCOSE 108 mg/dL (70-99); POTASSIUM 3.9 mmol/L (3.5-5.1); SODIUM 140 mmol/L (136-145); TOTAL BILIRUBIN 0.5 mg/dL (0.2-1.0); TOTAL PROTEIN 7.1 g/dL (6.4-8.2)
[2017-07-10 14:09] LABS: % BANDS 19 % (0-9); % LYMPHS 12 % (24-48); % METAS 2 % (0-0); % MONOS 2 % (0-10); % MYELOS 5 % (0-0); NUCLEATED RBC 1
[2017-07-10 15:08] LABS: ANISOCYTOSIS MARKED; HYPOCHROMIA SLIGHT; OVALOCYTES MOD; PLT ESTIMATE ADEQUATE (ADEQUATE); POLYCHROMASIA MOD; SCHISTOCYTES FEW; TEAR DROP CELLS FEW
[2017-07-10 17:04] LABS: % SEGS 60 % (35-66)
[2017-07-10 19:17] LABS: CA 125 8.6 U/mL (0.0-38.1)
== END | disposition home or self-care (01) ==
LOC: LAB 11:59
DX: C49.9 Malignant neoplasm of connective and soft tissue, unspecified (principal); R79.89 Other specified abnormal findings of blood chemistry
CPT/HCPCS: 36415; 80053; 85007; 85025; 86304

== ENCOUNTER → 2017-07-17 | Outpatient (CLI) | payer OTHER ==
[2017-07-17 13:55] LABS: ADD MAN DIFF? NO
[2017-07-17 14:13] LABS: BASO # 0.1 x10^3/uL (0.0-0.2); BASO % 1 % (0-3); EOS % 0 % (0-3); HEMATOCRIT 27.5 % (36.0-47.0); HEMOGLOBIN 8.9 g/dL (12.0-15.5); LYMPH % 16 % (24-48); MEAN CORPUSCULAR HEMOGLOBIN 26 pg (25-35); MEAN CORPUSCULAR HGB CONC 33 g/dL (31-37); MEAN CORPUSCULAR VOLUME 79 fL (79-100); MONO # 0.1 x10^3/uL (0.0-1.1); MONO % 2 % (0-9); NEUT % 81 % (31-73); PLATELET COUNT 488 x10^3/uL (140-400); RED CELL DISTRIBUTION WIDTH 29.2 % (11.5-14.5); WHITE BLOOD COUNT 6.2 x10^3/uL (4.0-11.0)
[2017-07-17 16:59] LABS: CRENATED RBC PRESENT; OVALOCYTES OCC; PLT ESTIMATE INCREASED (ADEQUATE); SCHISTOCYTES OCC; STOMATOCYTES OCC
== END | disposition home or self-care (01) ==
LOC: LAB 13:44
DX: C49.9 Malignant neoplasm of connective and soft tissue, unspecified (principal)
CPT/HCPCS: 36415; 85025

== ENCOUNTER → 2017-07-31 | Outpatient (CLI) | payer OTHER ==
[2017-07-31 12:30] LABS: BASO # 0.3 x10^3/uL (0.0-0.2); BASO % 1 % (0-3); EOS % 0 % (0-3); HEMATOCRIT 28.9 % (36.0-47.0); LYMPH % 9 % (24-48); MEAN CORPUSCULAR HEMOGLOBIN 26 pg (25-35); MEAN CORPUSCULAR HGB CONC 31 g/dL (31-37); MEAN CORPUSCULAR VOLUME 83 fL (79-100); MONO # 1.5 x10^3/uL (0.0-1.1); MONO % 5 % (0-9); NEUT # 26.7 x10^3uL (1.8-7.7); NEUT % 85 % (31-73); PLATELET COUNT 204 x10^3/uL (140-400); RED BLOOD COUNT 3.47 x10^6/uL (3.50-5.40); WHITE BLOOD COUNT 31.4 x10^3/uL (4.0-11.0)
[2017-07-31 12:31] LABS: ADD MAN DIFF? YES
[2017-07-31 13:13] LABS: % BANDS 18 % (0-9); % EOS 1 % (0-5); % METAS 3 % (0-0); PLT ESTIMATE ADEQUATE (ADEQUATE)
[2017-07-31 13:14] LABS: ANISOCYTOSIS MARKED; POLYCHROMASIA MOD
[2017-07-31 13:15] LABS: OVALOCYTES PRESENT; SCHISTOCYTES FEW; TEAR DROP CELLS PRESENT
[2017-07-31 13:16] LABS: % LYMPHS 11 % (24-48); % MONOS 4 % (0-10); % SEGS 61 % (35-66)
[2017-07-31 13:17] LABS: % MYELOS 2 % (0-0)
== END | disposition home or self-care (01) ==
LOC: LAB 12:08
DX: C49.9 Malignant neoplasm of connective and soft tissue, unspecified (principal)
CPT/HCPCS: 36415; 85007; 85025

== ENCOUNTER → 2017-08-13 | Outpatient (CLI) | payer OTHER ==
[2017-08-13 10:19] LABS: ADD MAN DIFF? NO
[2017-08-13 10:22] LABS: BASO # 0.1 x10^3/uL (0.0-0.2); BASO % 1 % (0-3); EOS # 0.1 x10^3/uL (0.0-0.7); EOS % 1 % (0-3); HEMATOCRIT 28.9 % (36.0-47.0); HEMOGLOBIN 9.3 g/dL (12.0-15.5); LYMPH # 1.3 x10^3/uL (1.0-4.8); LYMPH % 25 % (24-48); MEAN CORPUSCULAR HEMOGLOBIN 27 pg (25-35); MEAN CORPUSCULAR HGB CONC 32 g/dL (31-37); MEAN CORPUSCULAR VOLUME 84 fL (79-100); MONO # 0.6 x10^3/uL (0.0-1.1); MONO % 11 % (0-9); NEUT # 3.1 x10^3uL (1.8-7.7); NEUT % 61 % (31-73); PLATELET COUNT 487 x10^3/uL (140-400); RED BLOOD COUNT 3.45 x10^6/uL (3.50-5.40); RED CELL DISTRIBUTION WIDTH 23.9 % (11.5-14.5)
[2017-08-13 10:37] LABS: ALBUMIN 3.5 g/dL (3.4-5.0); ALBUMIN/GLOBULIN RATIO 1.1 (1.0-1.7); ALK PHOS 63 U/L (46-116); ALT (SGPT) 28 U/L (14-59); ANION GAP 5 (6-14); AST (SGOT) 15 U/L (15-37); BLOOD UREA NITROGEN 12 mg/dL (7-20); BUN/CREATININE RATIO 17 (6-20); CARBON DIOXIDE 28 mmol/L (21-32); CHLORIDE 106 mmol/L (98-107); CREATININE 0.7 mg/dL (0.6-1.0); GLUCOSE 96 mg/dL (70-99); POTASSIUM 4.4 mmol/L (3.5-5.1); SODIUM 139 mmol/L (136-145); TOTAL BILIRUBIN 0.6 mg/dL (0.2-1.0); TOTAL PROTEIN 6.7 g/dL (6.4-8.2)
[2017-08-13 21:18] LABS: CA 125 5.6 U/mL (0.0-38.1)
== END | disposition home or self-care (01) ==
LOC: LAB 09:05
DX: C49.9 Malignant neoplasm of connective and soft tissue, unspecified (principal)
CPT/HCPCS: 36415; 80053; 85025; 86304

== ENCOUNTER → 2017-08-13 | Outpatient (CLI) | payer OTHER ==
[~2017-08-13] MED LIST changes: +CONTRAST GIVEN MC; -FERR-26 PO; -MEDR10TA PO; -MULT1TAB52 PO; -NAPR500T4 PO; -OXYC-323 PO
[2017-08-13] MEDS: IOHEXOL 240 MG/ML 50ML VIAL. PO (10:00)
[2017-08-13] MEDS: IOHEXOL 300 MG/ML 100ML VIAL. IV (10:00)
[2017-08-13] MEDS: HEPARIN PF 500 UNIT/5 ML DISP.SYRIN. IV (11:03)
== END | disposition home or self-care (01) ==
LOC: CT 08:59
DX: C49.9 Malignant neoplasm of connective and soft tissue, unspecified (principal); Z90.710 Acquired absence of both cervix and uterus; K43.9 Ventral hernia without obstruction or gangrene
CPT/HCPCS: 71260; 74177; Q9966; Q9967

== ENCOUNTER → 2017-11-09 | Outpatient (CLI) | payer OTHER ==
[2017-11-09] MEDS: IOHEXOL 300 MG/ML 100ML VIAL. IV (12:20)
[2017-11-09] MEDS: IOHEXOL 240 MG/ML 50ML VIAL. PO (12:21)
[2017-11-09] MEDS: HEPARIN PF 500 UNIT/5 ML DISP.SYRIN. IV (12:21)
== END | disposition home or self-care (01) ==
LOC: CT 10:23
DX: G62.0 Drug-induced polyneuropathy (principal)
CPT/HCPCS: 71260; 74177; Q9966; Q9967

== ENCOUNTER → 2017-11-26 | Outpatient (CLI) | payer OTHER ==
[~2017-11-26] MED LIST changes: -CONTRAST GIVEN MC; +LIDOCAINE 2%/EPI 1:100,000 20 ML VIAL.; +MIDAZOLAM HCL/PF 2 MG/2 ML VIAL.; +fentaNYL PF VIAL 100 MCG/2 ML VIAL
[2017-11-26 07:24] LABS: ADD MAN DIFF? NO
[2017-11-26 07:27] LABS: BASO # 0.1 x10^3/uL (0.0-0.2); BASO % 2 % (0-3); EOS # 0.2 x10^3/uL (0.0-0.7); EOS % 5 % (0-3); HEMOGLOBIN 11.7 g/dL (12.0-15.5); LYMPH # 1.3 x10^3/uL (1.0-4.8); LYMPH % 41 % (24-48); MEAN CORPUSCULAR HEMOGLOBIN 22 pg (25-35); MEAN CORPUSCULAR HGB CONC 33 g/dL (31-37); MEAN CORPUSCULAR VOLUME 69 fL (79-100); MONO # 0.3 x10^3/uL (0.0-1.1); MONO % 9 % (0-9); NEUT # 1.4 x10^3uL (1.8-7.7); NEUT % 43 % (31-73); PLATELET COUNT 385 x10^3/uL (140-400); RED BLOOD COUNT 5.22 x10^6/uL (3.50-5.40); RED CELL DISTRIBUTION WIDTH 21.1 % (11.5-14.5)
[2017-11-26 07:40] LABS: INR 0.9 (0.8-1.1); PROTHROMBIN TIME PATIENT 11.8 SEC (11.7-14.0)
[2017-11-26] MEDS: fentaNYL PF VIAL 100 MCG/2 ML VIAL IV (08:55)
[2017-11-26] MEDS: MIDAZOLAM HCL/PF 2 MG/2 ML VIAL. IV (08:56)
[2017-11-26] MEDS: LIDOCAINE 2%/EPI 1:100,000 20 ML VIAL. IJ (08:56)
[2017-11-26 09:32] LABS: ANISOCYTOSIS PRESENT; HYPOCHROMIA PRESENT; MICROCYTOSIS PRESENT; OVALOCYTES PRESENT; PLT ESTIMATE ADEQUATE (ADEQUATE); WHITE BLOOD COUNT 3.2 x10^3/uL (4.0-11.0)
== END ==
LOC: INTRAD 07:06
DX: Z45.2 Encounter for adjustment and management of vascular access device (principal); D64.9 Anemia, unspecified; Z98.890 Other specified postprocedural states; Z90.710 Acquired absence of both cervix and uterus; Z85.43 Personal history of malignant neoplasm of ovary; Z90.721 Acquired absence of ovaries, unilateral; Z72.89 Other problems related to lifestyle; Z85.828 Personal history of other malignant neoplasm of skin
CPT/HCPCS: 36415; 36590; 77001; 85025; 85610; 99152; 99153; J2250; J3010; J3490

== ENCOUNTER → 2018-02-18 | Outpatient (CLI) | payer OTHER ==
[2017-03-13 12:00] VITALS: BP_DIAS 79
[2017-11-26 10:15] VITALS: BP_SYST 133
[~2018-02-18] MED LIST changes: +ASCO500T2 PO; +CALC-77 PO; +DOCU-109 PO; +FERR325T14 PO; +GABA-586 PO; +IOHEXOL 240 MG/ML 50ML VIAL. IV ONE; +IOHEXOL 300 MG/ML 100ML VIAL. IV ONE; -LIDOCAINE 2%/EPI 1:100,000 20 ML VIAL.; +MEDR10TA PO; -MIDAZOLAM HCL/PF 2 MG/2 ML VIAL.; +MULT1TAB52 PO; +NAPR-514 PO; +OXYC-323 PO; +VENL75CA PO; +[UNRECOGNIZED DRUG - OTHER] PO; +biotin PO; -fentaNYL PF VIAL 100 MCG/2 ML VIAL
--- NOTE | 2018-02-18 13:18 | RAD ---
CT CHEST ABD PELVIS W/CONTRAST Indication: Uterine cancer Technique: Postcontrast CT imaging was performed of the chest, abdomen, pelvis, multiplanar reconstruction images submitted. One or more of the following individualized dose reduction techniques were utilized for this examination: 1. Automated exposure control 2. Adjustment of the mA and/or kV according to patient size 3. Use of iterative reconstruction technique. Contrast: 75 cc Omnipaque 300 Comparison: November 09, 2017 CHEST: Findings: There is no new significant lymphadenopathy of the chest. Right paratracheal nodes with the largest about0.9 cm short axis dimension are similar. Thoracic aortic caliber is within normal limits, no intraluminal flap. There is no pleural or pericardial effusion, pneumothorax, infiltrate. Major airways are patent. There is no new significant pulmonary nodularity. Previously seen subcentimeter axillary nodes bilaterally are similar. IMPRESSION: 1. There is no new evidence of metastatic disease to the chest. Abdomen and pelvis: FINDINGS: No acute abnormality is identified of the liver, spleen, pancreas. There is no new adrenal nodularity. Gallbladder is present without intraluminal abnormality by CT both kidneys enhance, no hydronephrosis. Bowel is not significantly dilated. There is no free air or free fluid. There is retained stool greater of the right transverse colon. There is again umbilical fascial defect, short segment of small bowel extending through the defect without bowel dilatation. There again has been hysterectomy. There are some small iliac nodes as seen previously. There are several small mesenteric nodes with the largest about 0.6 cm short axis dimension, present previously. No new significantly enlarged or necrotic nodes are identified. IMPRESSION: 1. There is no new evidence of metastatic disease to the abdomen or the pelvis. 2. There is again umbilical fascial defect, short segment of small bowel protruding through the defect. Electronically signed by: Raymond Solis MD (02/18/2018 1:15 PM) [id number]
== END | disposition home or self-care (01) ==
LOC: CT 09:33
PROVIDERS: ATTEND Obstetrics & Gynecology Gynecologic Oncology
CPT/HCPCS: 71260 ×2; 74177 ×2; Q9966 ×2; Q9967 ×2

== ENCOUNTER → 2018-07-14 | Outpatient (CLI) | payer OTHER ==
[2017-11-26 10:15] VITALS: BP 133/79
[~2018-07-14] MED LIST changes: -GABA-586 PO; +GABA300C18 PO; -IOHEXOL 240 MG/ML 50ML VIAL. IV ONE; -IOHEXOL 300 MG/ML 100ML VIAL. IV ONE; -OXYC-323 PO; +OXYC1TAB15 PO
[2018-07-14 08:15] LABS: HEMATOCRIT 37.8 % (36.0-47.0); HEMOGLOBIN 12.2 g/dL (12.0-15.5); RED BLOOD COUNT 5.05 x10^6/uL (3.50-5.40); RED CELL DISTRIBUTION WIDTH 17.8 % (11.5-14.5); WHITE BLOOD COUNT 4.3 x10^3/uL (4.0-11.0)
[2018-07-14 08:41] LABS: ALBUMIN 3.9 g/dL (3.4-5.0); CALCIUM 9.6 mg/dL (8.5-10.1); CREATININE 0.7 mg/dL (0.6-1.0); GFR 110.5; POTASSIUM 3.9 mmol/L (3.5-5.1); TOTAL BILIRUBIN 0.5 mg/dL (0.2-1.0); TOTAL PROTEIN 7.9 g/dL (6.4-8.2)
[2018-07-14 08:44] LABS: CHOLESTEROL/HDL RATIO 2.7
[2018-07-14 08:49] LABS: FREE T4 0.9 ng/dL (0.76-1.46); THYROID STIM HORMONE (TSH) 2.817 uIU/mL (0.358-3.74)
[2018-07-15 00:14] LABS: HEMOGLOBIN A1C 6.2 % (4.8-5.6)
== END | disposition home or self-care (01) ==
LOC: LAB 07:53
PROVIDERS: ATTEND Family Medicine
DX: G62.9 Polyneuropathy, unspecified (principal); R73.03 Prediabetes; R94.6 Abnormal results of thyroid function studies
CPT/HCPCS: 36415; 80053; 80061; 82306; 83036; 84439; 84443; 85027

== ENCOUNTER → 2018-08-27 | Outpatient (CLI) | payer OTHER ==
[2017-11-26 10:15] VITALS: BP 133/79
[~2018-08-27] MED LIST changes: +CONTRAST GIVEN. MC PRN; +IOHEXOL 240 MG/ML 50ML VIAL. PO ONE; +IOHEXOL 300 MG/ML 100ML VIAL. IV ONE
--- NOTE | 2018-08-27 13:17 | RAD ---
CT of the chest, abdomen and pelvis with contrast, 08/27/2018: HISTORY: Follow-up leiomyosarcoma Multidetector CT imaging was performed following oral and IV administration of contrast. Comparison is made to a study from 02/18/2018. There is an unchanged small subcentimeter right paratracheal lymph node. No mediastinal or hilar adenopathy is seen. No pulmonary mass or pleural fluid is evident. There is no evidence of a hepatic mass or bile duct dilatation. The gallbladder is unremarkable. No pancreatic abnormality is seen. The spleen is of normal size. No renal or adrenal abnormality is detected. The abdominal aorta is unremarkable. No retroperitoneal adenopathy is evident. Multiple small mesenteric lymph nodes are noted without evidence of pathologic in enlargement. No iliac or inguinal adenopathy is seen. The uterus is surgically absent. There are surgical sutures related to the sigmoid colon. There is a moderate amount stool scattered throughout the colon. No free fluid or free air is evident in the abdomen or pelvis. A small fat-containing umbilical hernia is again noted. IMPRESSION: Stable CT chest, abdomen and pelvis without evidence of metastatic disease. PQRS Compliance Statement: One or more of the following individualized dose reduction techniques were utilized for this examination: 1. Automated exposure control 2. Adjustment of the mA and/or kV according to patient size 3. Use of iterative reconstruction technique Electronically signed by: Álvaro Rehman MD (08/27/2018 1:14 PM) [facility]
== END | disposition home or self-care (01) ==
LOC: CT 10:51
PROVIDERS: ATTEND Obstetrics & Gynecology Gynecologic Oncology
DX: C49.9 Malignant neoplasm of connective and soft tissue, unspecified (principal); K42.9 Umbilical hernia without obstruction or gangrene
CPT/HCPCS: 71260; 74177; Q9966; Q9967

== ENCOUNTER → 2019-11-01 | Outpatient (CLI) | payer OTHER ==
[2017-11-26 10:15] VITALS: BP 133/79
[~2019-11-01] MED LIST changes: -ASCO500T2 PO; +ASCO500T4 PO; -CONTRAST GIVEN. MC PRN; +MULT-445 PO; -MULT1TAB52 PO
--- NOTE | 2019-11-01 15:31 | RAD ---
CT CHEST ABD PELVIS W/CONTRAST Clinical Indication: Epithelioid leiomyosarcoma COMPARISON: 08/27/2018 TECHNIQUE: Multiple contiguous axial images were obtained throughout the chest, abdomen, and pelvis with the use of IV contrast. Axial images were reformatted into coronal and sagittal planes. 75 mL Omnipaque 300 was administered. One or more of the following dose reduction techniques were utilized: Automated exposure control (AEC), Adjustment of mA and/or kV according to patient size, Use of iterative reconstruction technique such as ASiR, CT scan done according to ALARA and image gently/image wisely. Findings: The thyroid is symmetric. There is no axillary, mediastinal, or hilar adenopathy. Normal caliber thoracic aorta. Enlarged pulmonary trunk measures 33 mm, which can be seen with pulmonary hypertension. Cardiomegaly. There is no pericardial effusion. The central airways are patent. No pulmonary mass or consolidation. No pleural effusion is observed. There is no pneumothorax. The liver, gallbladder, spleen, pancreas, and adrenal glands are unremarkable. The kidneys are unremarkable. There is no significant mesenteric or retroperitoneal adenopathy identified. There is no evidence of free intraperitoneal fluid or pneumoperitoneum. Rectosigmoid anastomosis. Visualized portions of the bowel are otherwise unremarkable. The bladder and distal ureters are unremarkable. Hysterectomy. There is no significant pelvic ascites. No significant iliac or inguinal adenopathy is identified. No aggressive lytic or blastic osseous lesions. IMPRESSION: No evidence of recurrent or metastatic disease in the chest, abdomen, or pelvis. Electronically signed by: Raymond Padron MD (11/01/2019 3:28 PM) [facility]
== END | disposition home or self-care (01) ==
LOC: CT 12:41
PROVIDERS: ATTEND Obstetrics & Gynecology Gynecologic Oncology
DX: C49.9 Malignant neoplasm of connective and soft tissue, unspecified (principal); K63.89 Other specified diseases of intestine; I28.8 Other diseases of pulmonary vessels; Z90.710 Acquired absence of both cervix and uterus
CPT/HCPCS: 71260; 74177; Q9966; Q9967

== ENCOUNTER → 2020-05-08 | Outpatient (CLI) | payer OTHER ==
[2017-11-26 10:15] VITALS: BP 133/79
[~2020-05-08] MED LIST changes: -IOHEXOL 240 MG/ML 50ML VIAL. PO ONE; -IOHEXOL 300 MG/ML 100ML VIAL. IV ONE
== END ==
LOC: LAB 13:10
PROVIDERS: ATTEND Internal Medicine Pulmonary Disease
DX: J02.9 Acute pharyngitis, unspecified (principal); R53.81 Other malaise; R09.81 Nasal congestion; Z20.828 Contact with and (suspected) exposure to other viral communicable diseases
CPT/HCPCS: U0003

== ENCOUNTER → 2020-07-03 | Outpatient (CLI) | payer OTHER ==
[2017-11-26 10:15] VITALS: BP 133/79
[~2020-07-03] MED LIST changes: +CONTRAST GIVEN. MC PRN; +IOHEXOL 240 MG/ML 50ML VIAL. PO ONE; +IOHEXOL 300 MG/ML 100ML VIAL. IV ONE
--- NOTE | 2020-07-04 08:52 | RAD ---
PQRS Compliance Statement: One or more of the following individualized dose reduction techniques were utilized for this examinat ion: 1. Automated exposure control 2. Adjustment of the mA and/or kV according to patient size 3. Use of iterative reconstruction technique CT CHEST+ABD+PELVIS W 07/03/2020 10:35 AM INDICATION: Epithelioid leiomyosarcoma COMPARISON: CT chest, abdomen and pelvis 11/01/2019, 08/27/2018 TECHNIQUE: Multiple axial CT images of the chest, abdomen and pelvis were obtained after the intraven ous administration of 75 mL Omnipaque 300. Coronal and sagittal reformats are provided. FINDINGS: Thyroid gland is normal in appearance. Heart size is borderline enlarged, stable. No pathologically e nlarged thoracic lymph nodes. No new or enlarging solid noncalcified pulmonary nodules. No pleural ef fusions, pulmonary vascular congestion or pneumothorax. Liver, spleen, bilateral adrenal glands, pancreas and gallbladder are normal in appearance. The kidne ys enhance symmetrically. There is no suspicious renal mass. There is no hydronephrosis. There are no suspected calculi within the kidneys, ureters or urinary bladder. The abdominal aorta is normal in c ourse and caliber. There are no pathologically enlarged lymph nodes in the abdomen and pelvis. There is no abdominal free fluid. There is no free intraperitoneal air. Oral contrast was administered. Opa cified bowel loops demonstrate normal mucosal fold pattern. Small and large bowel are normal in calib er. There is no evidence for bowel obstruction. There are no pericolonic inflammatory changes. Append ix not definitively visualized. Bowel anastomosis identified at the rectosigmoid junction. No mural n odularity is identified. Small umbilical hernia containing fat. Urinary bladder is within normal limi ts given degree of distention. Uterus and ovaries are surgically absent. No suspicious peritoneal abn ormality is identified. Nonenlarged mesenteric lymph nodes are present. No suspicious osseous abnorma lity. IMPRESSION: No evidence for metastatic disease involving the chest, abdomen and pelvis. Electronically signed by: Cristina Xavier MD (07/04/2020 8:50 AM) [facility]
== END ==
LOC: CT 10:27
PROVIDERS: ATTEND Obstetrics & Gynecology Gynecologic Oncology
DX: C54.8 Malignant neoplasm of overlapping sites of corpus uteri (principal)
CPT/HCPCS: 71260; 74177; Q9966; Q9967

== ENCOUNTER → 2021-10-22 | Outpatient (CLI) | payer OTHER ==
[2017-11-26 10:15] VITALS: BP 133/79
[~2021-10-22] MED LIST changes: -CONTRAST GIVEN. MC PRN; -IOHEXOL 240 MG/ML 50ML VIAL. PO ONE; -IOHEXOL 300 MG/ML 100ML VIAL. IV ONE
[2021-10-22 16:46] LABS: BASO % 1 % (0-3); EOS # 0.1 x10^3/uL (0.0-0.7); EOS % 1 % (0-3); HEMATOCRIT 38.2 % (36.0-47.0); HEMOGLOBIN 12.8 g/dL (12.0-15.5); LYMPH # 2.1 x10^3/uL (1.0-4.8); LYMPH % 46 % (24-48); MEAN CORPUSCULAR HEMOGLOBIN 27 pg (25-35); MEAN CORPUSCULAR HGB CONC 33 g/dL (31-37); MEAN CORPUSCULAR VOLUME 81 fL (79-100); MONO # 0.4 x10^3/uL (0.0-1.1); MONO % 8 % (0-9); NEUT % 45 % (31-73); PLATELET COUNT 299 x10^3/uL (140-400); WHITE BLOOD COUNT 4.5 x10^3/uL (4.0-11.0)
[2021-10-22 17:24] LABS: ALBUMIN 4.1 g/dL (3.4-5.0); ALBUMIN/GLOBULIN RATIO 1.1 (1.0-1.7); CALCIUM 9.1 mg/dL (8.5-10.1); CREATININE 0.9 mg/dL (0.6-1.0); GFR 81.6; POTASSIUM 3.8 mmol/L (3.5-5.1); TOTAL BILIRUBIN 0.8 mg/dL (0.2-1.0)
[2021-10-22 17:36] LABS: FREE T4 0.98 ng/dL (0.76-1.46); THYROID STIM HORMONE (TSH) 1.419 uIU/mL (0.358-3.74)
[2021-10-23 05:20] LABS: TESTOSTERONE TOTAL 12 ng/dL (4-50)
[2021-10-23 06:15] LABS: FSH 58.4 mIU/mL (.)
== END ==
LOC: LAB 15:49
PROVIDERS: ATTEND Obstetrics & Gynecology
DX: Z13.29 Encounter for screening for other suspected endocrine disorder (principal)
CPT/HCPCS: 36415; 80053; 82306; 82607; 82670; 83001; 84403; 84439; 84443; 84481; 85025; 86376